=== PATIENT | female | born 1980 | race African-American/Black ===

== ENCOUNTER 2022-08-09 07:18 | Inpatient (IN) ==
[2022-08-09] MEDS ORDERED: OXYTOCIN/LR 20 UNIT/1,000 ML BAG IV ONE ×3 (07:24→13:13)
[2022-08-09] MEDS ORDERED: TRANEXAMIC ACID 1,000 MG in SODIUM CHLORIDE 0.9% 100 ML IV PRN (07:24)
[2022-08-09] MEDS ORDERED: miSOPROStoL 200 MCG TABLET RECTAL PRN (07:24)
[2022-08-09] MEDS ORDERED: LACTATED RINGERS 250 ML IV ONE (07:24)
[2022-08-09] MEDS ORDERED: LACTATED RINGERS 500 ML IV PRN (07:24)
[2022-08-09] MEDS ORDERED: ONDANSETRON 4 MG/2 ML VIAL IV PRN (07:24)
[2022-08-09] MEDS ORDERED: METHYLERGONOVINE 0.2 MG/1 ML AMP IM PRN (07:24)
[2022-08-09] MEDS ORDERED: CARBOPROST TROMETHAMINE 250 MCG/ML AMP IM PRN (07:24)
[2022-08-09] MEDS ORDERED: MEPERIDINE 25 MG/1 ML VIAL IV PRN (07:24)
[2022-08-09] MEDS ORDERED: BUTORPHANOL 2 MG/ML VIAL IV PRN (07:24)
[2022-08-09] MEDS ORDERED: diphenhydrAMINE 50 MG/1 ML VIAL IV PRN ×2 (07:25)
[2022-08-09] MEDS ORDERED: CITRIC ACID/SODIUM CITRATE 30 ML UDCUP PO ONE (07:25)
[2022-08-09] MEDS ORDERED: FAMOTIDINE 20 MG/2 ML VIAL IV ONE (07:25)
[2022-08-09] MEDS ORDERED: PROMETHAZINE 25 MG/1 ML VIAL IM ONE (07:25)
[2022-08-09] MEDS ORDERED: ePHEDrine 50 MG/ML VIAL IV PRN (07:25)
[2022-08-09] MEDS ORDERED: NALOXONE 0.4 MG/ML VIAL IV PRN (07:25)
[2022-08-09] MEDS ORDERED: fentaNYL 2 MCG/ROPIV 0.2% EPID 100 ML EPIDURAL SCH (07:30)
[2022-08-09] MEDS: LACTATED RINGERS 1,000 ML IV SCH ×2 (07:34→08:03)
[2022-08-09 07:53] LABS: Basophils % 0.3 % (0.0-0.8); Eosinophils # 0.1 10*3/uL (0.0-0.87); Eosinophils % 1.4 % (0.00-10.9); Hematocrit 34.6 VOL% (35.7-47.0); Hemoglobin 11.1 GM/DL (12.0-16.0); Immature Granulocytes % 0.9 %; Immature Granulocytes Absolute 0.09 #; Lymphocytes # 2.1 10*3/uL (1.4-4.0); Lymphocytes % 20.4 % (21.3-54.2); Mean Corpuscular HGB Conc 32.1 GM/DL (32-36); Mean Corpuscular Volume 83.8 FL (87-102); Mean Platelet Volume 11.3 FL (9.6-12.0); Monocytes # 0.7 10*3/uL (0.11-0.8); Monocytes % 7.1 % (1.7-12.7); Neutrophils % 69.9 % (38.7-73.9); Platelet Count 152 T/CUMM (130-400); Red Blood Count 4.13 MC/CUMM (3.8-5.5); Red Cell Distribution Width 17.3 % (9.3-17.3); White Blood Count 10.1 T/CUMM (4-12)
[2022-08-09 08:11] LABS: Alanine Aminotransferase 19 U/L (13-56); Albumin 3.4 G/DL (3.4-5.0); Alkaline Phosphatase 169 U/L (45-117); Aspartate Amino Transferase 24 U/L (0-37); Bilirubin,Total < 0.39 MG/DL (0.20-1.00); Blood Urea Nitrogen 6 MG/DL (7-18); Carbon Dioxide 23 MMOL/L (21-32); Chloride 107 MMOL/L (98-107); Glucose 83 MG/DL (74-106); Potassium 3.7 MMOL/L (3.5-5.1); Sodium 136 MMOL/L (136-145); Total Protein 7.1 G/DL (6.4-8.2)
[2022-08-09] MEDS ORDERED: miSOPROStoL 200 MCG TABLET ONE (08:58)
[2022-08-09] MEDS ORDERED: METHYLERGONOVINE 0.2 MG/1 ML AMP ONE (08:59)
[2022-08-09] MEDS ORDERED: CARBOPROST TROMETHAMINE 250 MCG/ML AMP IM ONE (08:59)
[2022-08-09] MEDS ORDERED: NIFEdipine 10 MG CAPSULE PO ONE ×3 (09:31→13:58)
[2022-08-09] MEDS ORDERED: OXYTOCIN/LR 20 UNIT/1,000 ML BAG IV SCH (10:00)
[2022-08-09 10:22] LABS: Mucus,Urine Occasional /LPF (Occasional); RBC,Urine 707 /HPF (0-4); Squamous Epithelial Cell,Urine Occasional /HPF (0-10)
[2022-08-09 10:26] LABS: Bilirubin,Urine Negative (Negative); Blood, Urine Large mg/dL (Negative); Glucose,Urine (UA) Negative (Negative); Ketones,Urine Negative (Negative); Nitrite,Urine Negative (Negative); Protein,Urine 30 mg/dL (Negative); Urine Appearance Slightly Cloudy (Clear); Urine Color Yellow (Yellow); Urine pH 7.5 (4.5-8.0)
[2022-08-09 11:42] LABS: Cord Venous Blood HCO3 18.8 MMOL/L; Cord Venous Blood PCO2 50.1 MMHG; Cord Venous Blood PO2 26.4
[2022-08-09] MEDS ORDERED: NIFEdipine 10 MG CAPSULE PO PRN (12:30)
[2022-08-09] MEDS ORDERED: BENZOCAINE 20%/MENTHOL 0.5% SPRAY 56 GM CAN TOP PRN (13:13)
[2022-08-09] MEDS ORDERED: DIPH/TET/ACEL PERT BOOSTER VACCINE 0.5 ML VIAL IM ONE (13:13)
[2022-08-09] MEDS ORDERED: WITCH HAZEL PADS 100/JAR TOP PRN (13:13)
[2022-08-09] MEDS ORDERED: BISACODYL 10 MG SUPP RECTAL PRN (13:13)
[2022-08-09] MEDS ORDERED: MEASLES/MUMPS/RUBELLA VACCINE 0.5 ML VIAL SUBCUT ONE (13:13)
[2022-08-09] MEDS ORDERED: LANOLIN 50% CREAM 0.3 OZ TUBE TOP PRN (13:13)
[2022-08-09] MEDS ORDERED: ACETAMINOPHEN 325 MG TABLET PO PRN (13:13)
[2022-08-09] MEDS ORDERED: HYDROCORTISONE 2.5% RECTAL CREAM 30 GM TUBE TOP PRN (13:13)
[2022-08-09] MEDS ORDERED: RHO(D) IMMUNE GLOBULIN 300 MCG SYRINGE IM ONE (13:13)
[2022-08-09] MEDS: IBUPROFEN 800 MG TABLET PO PRN ×2 (13:19→18:45)
[2022-08-09] MEDS: oxyCODONE/ACETAMINOPHEN 5-325 MG TABLET PO PRN (17:55)
[2022-08-09] MEDS: DOCUSATE SODIUM 100 MG CAPSULE PO SCH (20:41)
[2022-08-10] MEDS: oxyCODONE/ACETAMINOPHEN 5-325 MG TABLET PO PRN ×2 (04:01→15:00)
[2022-08-10] MEDS: IBUPROFEN 800 MG TABLET PO PRN (04:02)
[2022-08-10 04:58] LABS: Basophils # 0.1 10*3/uL (0.0-0.2); Basophils % 0.3 % (0.0-0.8); Eosinophils # 0.2 10*3/uL (0.0-0.87); Eosinophils % 1.4 % (0.00-10.9); Hematocrit 32.8 VOL% (35.7-47.0); Hemoglobin 10.7 GM/DL (12.0-16.0); Immature Granulocytes % 0.6 %; Immature Granulocytes Absolute 0.09 #; Lymphocytes % 13.4 % (21.3-54.2); Mean Corpuscular HGB Conc 32.6 GM/DL (32-36); Mean Corpuscular Volume 82.8 FL (87-102); Mean Platelet Volume 11.3 FL (9.6-12.0); Monocytes # 1.1 10*3/uL (0.11-0.8); Monocytes % 7.1 % (1.7-12.7); Neutrophils % 77.2 % (38.7-73.9); Platelet Count 163 T/CUMM (130-400); Red Blood Count 3.96 MC/CUMM (3.8-5.5)
[2022-08-10] MEDS ORDERED: oxyCODONE/ACETAMINOPHEN 5-325 MG TABLET PO PRN (08:51)
[2022-08-10] MEDS: DOCUSATE SODIUM 100 MG CAPSULE PO SCH ×2 (15:01→20:38)
[2022-08-10] MEDS ORDERED: NIFEdipine 10 MG CAPSULE PO ONE (16:22)
[2022-08-11] MEDS: DOCUSATE SODIUM 100 MG CAPSULE PO SCH (08:17)
[2022-08-11] MEDS: oxyCODONE/ACETAMINOPHEN 5-325 MG TABLET PO PRN (08:21)
[2022-08-11] MEDS ORDERED: NIFEdipine 10 MG CAPSULE PO ONE (11:14)
[2022-08-11] MEDS: IBUPROFEN 800 MG TABLET PO PRN (11:26)
[2022-08-11 14:12] VITALS: BP 134/79
== END 2022-08-11 14:35 | disposition home or self-care (01) | DRG 560 ==
LOC: N.LD 07:18 → N.OB 15:51
PROVIDERS: ADMIT Obstetrics & Gynecology; ATTEND Obstetrics & Gynecology